=== PATIENT | female | born 1970 | race Caucasian/White ===

== ENCOUNTER 2016-11-26 16:24 | Inpatient (IN) | payer MEDICAID ==
[2016-11-26] MEDS ORDERED: Iohexol 240 (50 ml) PO STA (16:38)
[2016-11-26] MEDS ORDERED: Sodium Chloride 0.9% 1,000 ML IV ONE (16:38)
--- NOTE | 2016-11-26 16:44 | C.PDOC ---
History Of Present Illness 46-year-old female, PMHx includes Hypothyroidism, presents to the emergency department with complaints of abdominal pain. Patient states she has been experiencing right lower quadrant abdominal pain x3 weeks. States she developed nausea, that is associated with non-bloody/non-bilious vomiting and non-bloody/ watery diarrhea that started last night. Pain is constant, worse with movement and associated with dizziness and light headedness. Patients LNMP 11/16. She denies symptoms, back pain, fevers or chills. No other complaints at this time. Time Seen by Provider: 11/26/16 16:34 Chief Complaint (Nursing): Abdominal Pain History Per: Patient History/Exam Limitations: no limitations Past Medical History Reviewed: Historical Data, Nursing Documentation, Vital Signs Vital Signs: Last Vital Signs Temp 98.0 F 11/26/16 16:28 Pulse 62 11/26/16 18:44 Resp 20 11/26/16 18:44 BP 101/60 11/26/16 18:44 Pulse Ox 98 11/26/16 21:10 - Medical History PMH: Gastritis, Hypothyroidism Surgical History: Cholecystectomy Family History: States: Unknown Family Hx - Social History Hx Tobacco Use: No Hx Alcohol Use: No Hx Substance Use: No - Immunization History Hx Tetanus Toxoid Vaccination: Yes Hx Influenza Vaccination: Yes Hx Pneumococcal Vaccination: Yes Review Of Systems Except As Marked, All Systems Reviewed And Found Negative. Constitutional: Negative for: Fever, Chills Cardiovascular: Negative for: Chest Pain, Palpitations Respiratory: Negative for: Shortness of Breath Gastrointestinal: Positive for: Nausea, Vomiting, Abdominal Pain, Diarrhea Genitourinary: Negative for: Dysuria, Frequency, Vaginal Discharge, Vaginal Bleeding Musculoskeletal: Negative for: Back Pain Physical Exam - Physical Exam Appears: Non-toxic, No Acute Distress Skin: Warm, Dry, No Rash Head: Atraumatic, Normacephalic Eye(s): bilateral: Normal Inspection, PERRL, EOMI Nose: Normal Oral Mucosa: Moist Lips: Normal Appearing Neck: Normal ROM Cardiovascular: Rhythm Regular Respiratory: Normal Breath Sounds, No Accessory Muscle Use Gastrointestinal/Abdominal: Bowel Sounds, Soft, Tenderness (epigastric, RUQ, RLQ ), No Guarding, No Rebound Back: No CVA Tenderness Extremity: Normal ROM Neurological/Psych: Oriented x3, Normal Speech ED Course And Treatment - Laboratory Results Result Diagrams: 11/26/16 16:50 11/26/16 16:50 Lab Interpretation: No Acute Changes O2 Sat by Pulse Oximetry: 98 Pulse Ox Interpretation: Normal - CT Scan/US CT ABDOMEN/PELVIS W Other Rad Studies (CT/US): Read By Radiologist, Radiology Report Reviewed CT/US Interpretation: IMPRESSION: 1. Complex cystic mass within the left kidney suspicious for a renal cell carcinoma.. Reevaluation Time: 21:09 Reassessment Condition: Unchanged - Physician Consult Information Time Consulting Physician Contacted: 21:09 Physician Contacted: Malvin Tyler Outcome Of Conversation: Patient to be admitted to the hospitalist for abdominal pain and new diagnosis of possible renal cell carcinoma. Disposition - Disposition Disposition: HOSPITALIZED Disposition Time: 21:27 Condition: STABLE - POA Present On Arrival: None - Clinical Impression Clinical Impression: Abdominal pain, Mass of left kidney - Scribe Statement The provider has reviewed the documentation as recorded by the Saraibrd Beck All medical record entries made by the Saraibrd were at my direction and personally dictated by me. I have reviewed the chart and agree that the record accurately reflects my personal performance of the history, physical exam, medical decision making, and the department course for this patient. I have also personally directed, reviewed, and agree with the discharge instructions and disposition.
[2016-11-26] MEDS ORDERED: Sodium Chloride 0.9% 1,000 ML ONE (16:51)
[2016-11-26] MEDS ORDERED: Iohexol 240 (50 ml) ONE (16:51)
[2016-11-26 17:00] LABS: BASO % 0.6 % (0.0-2.0); EOS # 0.4 K/uL (0.0-0.7); EOS % 5.8 % (0.0-4.0); HEMATOCRIT 38.9 % (34.0-47.0); LYMPH # 1.5 K/uL (1.0-4.3); LYMPH % 21.3 % (20.0-40.0); MEAN CELL VOLUME 84.3 fL (81.0-99.0); MEAN CORPUSCULAR HEMOGLOBIN 27.2 pg (27.0-31.0); MEAN CORPUSCULAR HGB CONC 32.2 g/dL (33.0-37.0); MEAN PLATELET VOLUME 9.3 fL (7.2-11.7); MONO # 0.4 K/uL (0.0-0.8); NRBC % 0.1 % (0.0-2.0); RED CELL DISTRIBUTION WIDTH 14.5 % (11.5-14.5); WHITE BLOOD COUNT 7.2 K/uL (4.8-10.8)
[2016-11-26 17:08] LABS: CHLORIDE 101 mmol/L (98-107); POTASSIUM 3.9 mmol/L (3.6-5.2); SODIUM 138 mmol/L (132-148)
[2016-11-26 17:10] LABS: GFR AFRICAN-AMERICAN > 60; RBC URINE 1 /hpf (0-3); URINE BILIRUBIN NEGATIVE (NEGATIVE); URINE BLOOD NEGATIVE (NEGATIVE); URINE COLOR Yellow (YELLOW); URINE GLUCOSE (UA) NORMAL (Normal); URINE KETONE NEGATIVE (NEGATIVE); URINE LEUKOCYTE ESTERASE NEG Leu/uL (Negative); URINE PROTEIN NEGATIVE (NEGATIVE); URINE UROBILINOGEN NORMAL mg/dL (0.2-1.0); WBC URINE 1 /hpf (0-5)
[2016-11-26 17:11] LABS: ALB/GLOB RATIO 1.4 (1.0-2.1); ALKALINE PHOSPHATASE 86 U/L (38-126); ALT/SGPT 24 U/L (9-52); AST/SGOT 27 U/L (14-36); BILIRUBIN,TOTAL 0.7 mg/dL (0.2-1.3); BLOOD UREA NITROGEN 14 mg/dL (7-17); CALCIUM 8.6 mg/dl (8.6-10.4); CARBON DIOXIDE 28 mmol/L (22-30); GLUCOSE,RANDOM 103 mg/dL (65-105); TOTAL PROTEIN 7.3 g/dL (6.3-8.3)
[2016-11-26] MEDS ORDERED: Iodixanol 320 MG/ML 100 ML BOTTLE IV ONE (19:32)
--- NOTE | 2016-11-26 20:19 | CT ---
EXAM: CT Abdomen and Pelvis With Intravenous Contrast CLINICAL HISTORY: 46 years old, female; Pain; Abdominal pain; Generalized; Additional info: Abd pain TECHNIQUE: Axial computed tomography images of the abdomen and pelvis with intravenous contrast. This CT exam was performed using one or more of the following dose reduction techniques: automated exposure control, adjustment of the mA and/or kV according to patient size, and/or use of iterative reconstruction technique. Coronal and sagittal reformatted images were created and reviewed. CONTRAST: 100 mL of VISIPAQUE administered intravenously. EXAM DATE/TIME: Exam ordered 11/26/2016 4:40 PM COMPARISON: No relevant prior studies available. FINDINGS: Lower thorax: Hypoventilatory changes are noted at the left lung base. ABDOMEN: Liver: Unremarkable. No mass. Gallbladder and bile ducts: Surgical clips are noted in the gallbladder fossa. The gallbladder is absent. No ductal dilation. Pancreas: Unremarkable. No mass. No ductal dilation. Spleen: Unremarkable. No splenomegaly. Adrenals: Unremarkable. No mass. Kidneys and ureters: There is a complex cystic mass arising from the midportion of the left kidney. There is a suggestion of mural nodularity. The mass measures 2.7 x 3.3 x 2.7 cm. Thin internal septations are suggested.The left renal vein opacifies normally. There is no perirenal inflammatory change. No hydronephrosis. Stomach and bowel: Surgical clips are noted at the base of the cecum. No obstruction. No mucosal thickening. Appendix: The appendix is not seen. PELVIS: Bladder: Unremarkable. No mass. Reproductive: Unremarkable as visualized. ABDOMEN and PELVIS: Intraperitoneal space: Unremarkable. No free air. No significant fluid collection. Retroperitoneal space: No significant fluid collection. Bones/joints: No acute fracture. No dislocation. Soft tissues: Unremarkable. Vasculature: See above. Lymph nodes: Unremarkable. No enlarged lymph nodes. IMPRESSION: 1. Complex cystic mass within the left kidney suspicious for a renal cell carcinoma..
--- NOTE | 2016-11-26 21:34 | CP.PCM.HP ---
<Van Mckoy - Last Filed: 11/26/16 23:40> History of Present Illness - History of Present Illness History of Present Illness: CC: abdominal pain, nausea/vomiting" 46F with PMH of hypothyroidism presented to [facility] ED with complaint of abdominal pain and nausea/vomiting. Patient states that symptoms have been going on for about 3 weeks. She states that she has never experienced these symptoms before. She also reports a gradual onset. She stated that she has vomited about 4-5 times in last two days. She describes the vomit as dark black each time. She states that she has also had 7 episodes of diarrhea. She decided to come in today because pain was worse and n/v/d had not resolved. Patient rates abd pain as 10/10 in severity. She describes the pain as constant and sharp that begins in epigastric region which radiates to RLQ and R flank. Eating /drinking exacerbates her symptoms while nothing she notices alleviates them. Admits to fatigue and body aches. Denies recent illness, sick contacts, fver/ chills, cp, sob, constipation, incontinence, numbness/tingling. PMD: Dr. Tyler PMH: Hypothyroidism Med: Synthroid 25 mcg PO daily Allergy: NKDA PSH: bladder procedure for stones Hosp: colitis 8-10 years ago Fh: Unknown Social: lives with family, denies tobacco/ETOH/illicit drug use Present on Admission - Present on Admission Any Indicators Present on Admission: No History of DVT/PE: No History of Uncontrolled Diabetes: No Urinary Catheter: No Decubitus Ulcer Present: No Past Patient History - Past Social History Smoking Status: Never Smoked - ENDOCRINE/METABOLIC Hx Hypothyroidism: Yes - GASTROINTESTINAL Hx Gastritis: Yes - PSYCHIATRIC Hx Substance Use: No - SURGICAL HISTORY Hx Cholecystectomy: Yes - ANESTHESIA Hx Anesthesia: Yes Hx Anesthesia Reactions: No Meds Allergies/Adverse Reactions: Allergies Allergy/AdvReac Type Severity Reaction Status Date / Time No Known Allergies Allergy Verified 11/26/16 16:27 Physical Exam - Constitutional Appears: In Acute Distress (mild) - Head Exam Head Exam: ATRAUMATIC, NORMOCEPHALIC - Eye Exam Eye Exam: EOMI, Normal appearance Pupil Exam: PERRL - ENT Exam ENT Exam: Mucous Membranes Dry - Neck Exam Neck exam: Positive for: Normal Inspection - Respiratory Exam Respiratory Exam: Clear to Auscultation Bilateral, NORMAL BREATHING PATTERN - Cardiovascular Exam Cardiovascular Exam: RRR, +S1, +S2 - GI/Abdominal Exam GI & Abdominal Exam: Guarding (with deep palpation), Normal Bowel Sounds, Soft, Tenderness (RLQ, Epigastric pain). absent: Distended, Firm, Rebound - Extremities Exam Extremities exam: Positive for: normal capillary refill, pedal pulses present. Negative for: calf tenderness - Back Exam Back exam: tenderness (R flank pain) - Neurological Exam Neurological exam: Alert, CN II-XII Intact, Oriented x3 - Psychiatric Exam Psychiatric exam: Normal Affect, Normal Mood - Skin Skin Exam: Dry, Intact, Normal Color, Warm Results - Vital Signs Recent Vital Signs: Last Vital Signs Temp 98.0 F 11/26/16 16:28 Pulse 62 11/26/16 18:44 Resp 20 11/26/16 18:44 BP 101/60 11/26/16 18:44 Pulse Ox 98 11/26/16 21:28 - Labs Result Diagrams: 11/26/16 16:50 11/26/16 16:50 Labs: Laboratory Results - last 24 hr 11/26/16 11/26/16 11/26/16 16:50 16:50 16:50 WBC 7.2 RBC 4.62 Hgb 12.5 Hct 38.9 MCV 84.3 MCH 27.2 MCHC 32.2 L RDW 14.5 Plt Count 281 MPV 9.3 Neut % (Auto) 66.3 Lymph % (Auto) 21.3 [place]offey % (Auto) 6.0 Eos % (Auto) 5.8 H Baso % (Auto) 0.6 Neut # 4.8 Lymph # 1.5 Coffey # 0.4 Eos # 0.4 Baso # 0.0 Sodium 138 Potassium 3.9 Chloride 101 Carbon Dioxide 28 Anion Gap 14 BUN 14 Creatinine 0.8 Est GFR ( Amer) > 60 Est GFR (Non-Af Amer) > 60 Random Glucose 103 Calcium 8.6 Total Bilirubin 0.7 AST 27 ALT 24 Alkaline Phosphatase 86 Total Protein 7.3 Albumin 4.2 Globulin 3.1 Albumin/Globulin Ratio 1.4 Lipase 39 Urine Color Yellow Urine Clarity Hazy Urine pH 5.0 Ur Specific [place] 1.026 Urine Protein Negative Urine Glucose (UA) Normal Urine Ketones Negative Urine Blood Negative Urine Nitrate Negative Urine Bilirubin Negative Urine Urobilinogen Normal Ur Leukocyte Esterase Neg Urine WBC (Auto) 1 Urine RBC (Auto) 1 Ur Squamous Epith Cells 19 H Urine HCG, Qual 11/26/16 16:50 WBC RBC Hgb Hct MCV MCH MCHC RDW Plt Count MPV Neut % (Auto) Lymph % (Auto) [place]offey % (Auto) Eos % (Auto) Baso % (Auto) Neut # Lymph # [place] # Eos # Baso # Sodium Potassium Chloride Carbon Dioxide Anion Gap BUN Creatinine Est GFR ( Amer) Est GFR (Non-Af Amer) Random Glucose Calcium Total Bilirubin AST ALT Alkaline Phosphatase Total Protein Albumin Globulin Albumin/Globulin Ratio Lipase Urine Color Urine Clarity Urine pH Ur Specific [place] Urine Protein Urine Glucose (UA) Urine Ketones Urine Blood Urine Nitrate Urine Bilirubin Urine Urobilinogen Ur Leukocyte Esterase Urine WBC (Auto) Urine RBC (Auto) Ur Squamous Epith Cells Urine HCG, Qual Negative Assessment & Plan - Assessment and Plan (Free Text) Plan: 1. Abdominal pain Med/surg CT abd/pelvis: Complex cystic mass within the left kidney suspicious for a renal cell carcinoma (see full report) Zofran 4 mg IVP Q6H PRN Morphine 2 mg IVP Q4H PRN Protonix 40 mg IVP Q12H Sulcrafate 1 gm PO BID NS 100 cc/hr NPO 2. Nausea/vomiting coffee ground emesis as per patient Zofran 4 mg IVP Q6H PRN Protonix 40 mg IVP Q12H Sulcrafate 1 gm PO BID NS 100 cc/hr NPO 3. Renal Mass CT abd/pelvis: Complex cystic mass within the left kidney suspicious for a renal cell carcinoma (see full report) Heme/Onc consult, Dr. Palm, help appreciated Urology consult, Dr. Marquez, help appreciated UA: only shows sqaumos epith cells 19 4. Hypothyroidism Synthroid 25 mcg PO daily f/u TSH/T4 5. Prophylactic Measures Anticoagulation contraindicated due to coffee ground emesis SCDs protonix 40 mg IVP Q12H stool occult blood <Blas Lai - Last Filed: 11/27/16 06:34> Results - Vital Signs Recent Vital Signs: Last Vital Signs Temp 98.3 F 11/26/16 23:50 Pulse 60 11/27/16 01:50 Resp 20 11/26/16 23:50 BP 104/67 11/26/16 23:50 Pulse Ox 96 11/27/16 01:50 - Labs Result Diagrams: 11/26/16 16:50 11/26/16 16:50 Assessment & Plan - Date & Time Date: 11/27/16 (I have seen and examined the patient. I agree with the findings and plan of care as documented by Dr. Mckoy. Patient with abdominal pain, nausea, and vomiting. CT abdomen shows renal mass suspcious for renal cell carcinoma. Symptomatic treatment. Consult to urology and Heme/ onc. Monitor for acute changes.) Time: 06:33 Attending/Attestation - Attestation I have personally seen and examined this patient.: Yes I have fully participated in the care of the patient.: Yes I have reviewed all pertinent clinical information: Yes
[2016-11-27 00:10] VITALS: RESP 20
[2016-11-27] MEDS: Sodium Chloride 0.9% 1,000 ML IV SCH ×3 (00:15→21:47)
[2016-11-27] MEDS: Levothyroxine 25 MCG TAB PO SCH (07:00)
[2016-11-27 07:53] LABS: BASO % 0.4 % (0.0-2.0); EOS # 0.2 K/uL (0.0-0.7); EOS % 4.5 % (0.0-4.0); HEMATOCRIT 34.7 % (34.0-47.0); LYMPH # 1.8 K/uL (1.0-4.3); LYMPH % 34.9 % (20.0-40.0); MEAN CELL VOLUME 84.2 fL (81.0-99.0); MEAN CORPUSCULAR HEMOGLOBIN 27.2 pg (27.0-31.0); MEAN CORPUSCULAR HGB CONC 32.3 g/dL (33.0-37.0); MEAN PLATELET VOLUME 8.7 fL (7.2-11.7); MONO # 0.4 K/uL (0.0-0.8); MONO % 7.9 % (0.0-10.0); RED CELL DISTRIBUTION WIDTH 14.4 % (11.5-14.5); WHITE BLOOD COUNT 5.2 K/uL (4.8-10.8)
[2016-11-27 08:03] LABS: CHLORIDE 103 mmol/L (98-107)
[2016-11-27 08:04] LABS: POTASSIUM 3.7 mmol/L (3.6-5.2); SODIUM 137 mmol/L (132-148)
[2016-11-27 08:06] LABS: ALB/GLOB RATIO 1.2 (1.0-2.1); ALKALINE PHOSPHATASE 74 U/L (38-126); ALT/SGPT 17 U/L (9-52); AST/SGOT 22 U/L (14-36); BILIRUBIN,TOTAL 0.5 mg/dL (0.2-1.3); BLOOD UREA NITROGEN 9 mg/dL (7-17); CARBON DIOXIDE 24 mmol/L (22-30); GFR AFRICAN-AMERICAN > 60; TOTAL PROTEIN 5.8 g/dL (6.3-8.3)
[2016-11-27 08:07] LABS: CALCIUM 7.6 mg/dl (8.6-10.4); GLUCOSE,RANDOM 86 mg/dL (65-105)
--- NOTE | 2016-11-27 15:23 | CP.PCM.PN ---
<Mihaela Hinojosa - Last Filed: 11/27/16 16:07> Subjective - Date & Time of Evaluation Date of Evaluation: 11/27/16 Time of Evaluation: 08:00 - Subjective Subjective: Medicine Progress Note- Dr. Fritz's Service: Patient seen and examined at bedside this AM. Patient is complaining of 9/10 abdominal pain. She admits to nausea, but no vomiting since yesterday. She has a history of hypothyroid and taker her medication daily. She denies chest pain, SOB, fevers, chills. Admits to headache since last night secondary to emesis. Patient informed of renal mass found on imaging and need for further workup whether inpatient or outpatient is to be determined. Patient is NPO for now. Objective - Vital Signs/Intake and Output Vital Signs (last 24 hours): Temp Pulse Resp BP Pulse Ox 98.1 F 60 20 101/64 99 11/27/16 09:10 11/27/16 09:10 11/27/16 09:10 11/27/16 09:10 11/27/16 09:10 Intake and Output: 11/27/16 11/27/16 06:59 18:59 Intake Total 700 Balance 700 - Medications Medications: Current Medications Sodium Chloride (Sodium Chloride 0.9%) 1,000 mls @ 100 mls/hr IV .Q10H [facility] Last Admin: 11/27/16 10:00 Dose: 100 mls/hr Levothyroxine Sodium (Synthroid) 25 mcg PO DAILY@0630 [facility] Last Admin: 11/27/16 07:00 Dose: 25 mcg Morphine Sulfate (Morphine) 2 mg IVP Q4H PRN PRN Reason: Pain, Mild (1-3) Last Admin: 11/27/16 07:00 Dose: 2 mg Ondansetron HCl (Zofran Inj) 4 mg IVP Q6 PRN PRN Reason: Nausea/Vomiting Pantoprazole Sodium (Protonix Inj) 40 mg IVP Q12H [facility] Last Admin: 11/27/16 10:33 Dose: 40 mg Sucralfate (Carafate Tab) 1 gm PO BID [facility] Last Admin: 11/27/16 10:33 Dose: 1 gm - Labs Labs: 11/27/16 07:44 11/27/16 07:44 PT 11.3 SECONDS (9.7-12.2) 11/27/16 07:44 INR 1.0 11/27/16 07:44 APTT 31 SECONDS (21-34) 11/27/16 07:44 - Constitutional Appears: No Acute Distress - Head Exam Head Exam: NORMAL INSPECTION, NORMOCEPHALIC - Eye Exam Eye Exam: EOMI, Normal appearance - ENT Exam ENT Exam: Mucous Membranes Moist - Neck Exam Neck Exam: Full ROM - Respiratory Exam Respiratory Exam: Accessory Muscle Use, NORMAL BREATHING PATTERN - Cardiovascular Exam Cardiovascular Exam: REGULAR RHYTHM, +S1, +S2 - GI/Abdominal Exam GI & Abdominal Exam: Soft, Tenderness, Normal Bowel Sounds. absent: Distended - Extremities Exam Extremities Exam: Full ROM, Normal Inspection. absent: Pedal Edema, Tenderness - Back Exam Back Exam: NORMAL INSPECTION - Neurological Exam Neurological Exam: Alert, Awake, Oriented x3 - Psychiatric Exam Psychiatric exam: Normal Affect, Normal Mood - Skin Skin Exam: Dry, Normal Color, Warm Assessment and Plan (1) Coffee ground emesis Assessment & Plan: Coffee ground emesis as per patient GI consult place-Dr. Varner- help appreciated. Zofran 4 mg IVP Q6H PRN Protonix 40 mg IVP Q12H Sulcrafate 1 gm PO BID NS 100 cc/hr Keep NPO. Diet as per GI. Abd US ordered today- f/u results. Status: Acute (2) Abdominal pain Assessment & Plan: CT abd/pelvis: Complex cystic mass within the left kidney suspicious for a renal cell carcinoma (see full report). Abd US ordered today- f/u results. Lipase 39 and WNL. No leukocytosis. Keep NPO for now. Diet at per GI. Zofran 4 mg IVP Q6H PRN Morphine 2 mg IVP Q4H PRN Protonix 40 mg IVP Q12H Sulcrafate 1 gm PO BID NS 100 cc/hr Status: Acute (3) Mass of left kidney Assessment & Plan: CT abd/pelvis: Complex cystic mass within the left kidney suspicious for a renal cell carcinoma (see full report) Heme/Onc consult, Dr. Palm, help appreciated Urology consult, Dr. Marquez, help appreciated UA: only shows sqaumos epith cells 19 Status: Acute (4) Hypothyroidism Assessment & Plan: Synthroid 25 mcg PO daily f/u TSH/T4 ordered for the AM Status: Acute (5) Prophylactic measure Assessment & Plan: Anticoagulation contraindicated due to coffee ground emesis SCDs protonix 40 mg IVP Q12H stool occult blood Status: Acute <Sobeida Fritz V - Last Filed: 11/27/16 17:53> Objective - Vital Signs/Intake and Output Vital Signs (last 24 hours): Temp Pulse Resp BP Pulse Ox 98.1 F 60 20 101/64 99 11/27/16 09:10 11/27/16 09:10 11/27/16 09:10 11/27/16 09:10 11/27/16 09:10 Intake and Output: 11/27/16 11/27/16 06:59 18:59 Intake Total 1500 Balance 1500 - Medications Medications: Current Medications Sodium Chloride (Sodium Chloride 0.9%) 1,000 mls @ 100 mls/hr IV .Q10H [facility] Last Admin: 11/27/16 10:00 Dose: 100 mls/hr Levothyroxine Sodium (Synthroid) 25 mcg PO DAILY@0630 [facility] Last Admin: 11/27/16 07:00 Dose: 25 mcg Morphine Sulfate (Morphine) 2 mg IVP Q4H PRN PRN Reason: Pain, Mild (1-3) Last Admin: 11/27/16 07:00 Dose: 2 mg Ondansetron HCl (Zofran Inj) 4 mg IVP Q6 PRN PRN Reason: Nausea/Vomiting Pantoprazole Sodium (Protonix Inj) 40 mg IVP Q12H [facility] Last Admin: 11/27/16 10:33 Dose: 40 mg Sucralfate (Carafate Tab) 1 gm PO BID [facility] Last Admin: 11/27/16 17:29 Dose: 1 gm - Labs Labs: 11/27/16 07:44 11/27/16 07:44 PT 11.3 SECONDS (9.7-12.2) 11/27/16 07:44 INR 1.0 11/27/16 07:44 APTT 31 SECONDS (21-34) 11/27/16 07:44 Attending/Attestation - Attestation I have personally seen and examined this patient.: Yes I have fully participated in the care of the patient.: Yes I have reviewed all pertinent clinical information, including history, physical exam and plan: Yes Notes (Text): Patient seen, examined and case discussed with day-time resident. Patient reporting epigastric, right upper quadrant pain, burning in qualtiy, with associated nausea. Patient had indicated to day-time resident she had " dark vomitus" None reported today. Patient has noted CT Abdomen/Pelvis a complex cystic mass arising from midportion of the left kidney (mural nodularity. Mass: 2.7 X3.3X2.7 cm. thin internal septations are suggested left vein opacifies normally. Lipase normal on admission. Patient ordered for Abdominal US, Stool studies. GI consult for questionable coffee ground emesis; H/H is within normal, on PPi, and no acute finding noted on CT with PO and IV contrast F/u with urology and heme-onc regarding left renal mass Assessment/Plan (1) Abdominal pain Assessment & Plan: * CT abd/pelvis w PO and IV contrast (11/26/16): complex cystic mass arising from midportion of the left kidney (mural nodularity. Mass: 2.7 X3.3X2.7 cm. thin internal septations are suggested left vein opacifies normally * Ordered for Ab US today (patient points to RUQ/Epigastric area on exam) * Lipase is normal, LFTs normal, INR normal * Zofran 4 mg IVP Q6H PRN nausea * Morphine 2 mg IVP Q4H PRN * Protonix 40 mg IVP Q12H * Sulcrafate 1 gm PO BID * NS 100 cc/hr * Reported diarrhea: ordered for stool ova and parasite, and cdif * Ordered for stool occult blood Status: Acute (2) Mass of left kidney Assessment & Plan: * CT abd/pelvis w PO and IV contrast (11/26/16): complex cystic mass arising from midportion of the left kidney (mural nodularity. Mass: 2.7 X3.3X2.7 cm. thin internal septations are suggested left vein opacifies normally * f/u Heme/Onc consult, Dr. Palm, help appreciated * f/u Urology consult, Dr. Marquez, help appreciated * UA: only shows sqaumos epith cells 19 (contaminated); f/u urine culture Status: Acute (3) Coffee ground emesis Assessment & Plan: * "Coffee ground emesis" as per patient * GI consult on call0-Dr. Varner- help appreciated. * Zofran 4 mg IVP Q6H PRN nausea * Protonix 40 mg IVP Q12H * Sulcrafate 1 gm PO BID * NS 100 cc/hr. * H/H is stable Status: Acute (4) Hypothyroidism Assessment & Plan: * Synthroid 25 mcg PO daily * f/u TSH/T4 ordered for the AM Status: Acute (5) Prophylactic measure Assessment & Plan: * Anticoagulation contraindicated due to coffee ground emesis * SCDs b/l * Protonix 40 mg IVP Q12H * stool occult blood * NPO Status: Acute
--- NOTE | 2016-11-27 17:45 | US ---
HISTORY: abd pain COMPARISON: CT abdomen and pelvis with contrast performed 11/26/16 TECHNIQUE: Sonographic evaluation of the abdomen. FINDINGS: LIVER: Measures 12.0 cm in sagittal dimension. Echogenic liver may be seen in setting of hepatic parenchymal disease or fatty infiltration. No focal hepatic mass identified. The main portal vein appears patent with normal directional flow. No intrahepatic bile duct dilatation. GALLBLADDER: Cholecystectomy. COMMON BILE DUCT: Measures 6 mm. PANCREAS: Not well visualized. RIGHT KIDNEY: Measures 9.6 x 4.6 x 4.7 cm. No obstructing calculus or hydronephrosis identified. LEFT KIDNEY: Measures 9.5 x 4.4 x 4.5 cm. 2.6 x 2.4 x 2.8 cm heterogeneous hypoechoic lesion likely complex cyst with septation. No obstructing calculus or hydronephrosis identified. SPLEEN: Images are not provided of the spleen, as per technologist obscured. AORTA: Limited views appear unremarkable. IVC: Limited views appear unremarkable. OTHER FINDINGS: None. IMPRESSION: Echogenic liver may be seen in setting of hepatic parenchymal disease or fatty infiltration. Heterogeneous hypoechoic left renal lesion favored to represent complex cyst with septation. Cholecystectomy. Limitations of the study as above.
--- NOTE | 2016-11-27 19:58 | CON ---
DATE: 11/27/2016 TIME OF CONSULTATION: Roughly 4:40 p.m. BRIEF HISTORY: The patient is a 46-year-old sexually active female from [place], para 3 with 2 abortions who presents to [facility] Emergency Room with acute onset of abdominal pain, mostly on her right side and right mid epigastric area. She also complains of right shoulder pain. Abdominal pelvic CT with IV contrast showed a complex left renal cyst without any hydronephrosis or renal stones. The complex cystic mass measures 2.7 x 3.3 x 2.7 cm. There are no adrenal or bladder masses. This cystic mass is located in the left mid portion of the kidney. The patient gives a prior history of kidney stones that she was told she had kidney stones about 2 years ago at [facility] where an abdominal pelvic CT was done at that time. However, she denies any history of passing any kidney stones. She currently denies any dysuria or gross hematuria or renal colic. This case was discussed with Dr. Almaraz, radiology, and the original reading from the overnight radiologist was suspicious for renal cell carcinoma; however, Dr. Almaraz has reviewed this film with myself and this seems to be just a complex renal cyst at this time. Even though the study was not done without contrast, it does not look like there is any significant enhancement of this mass compared to the kidney enhancement. A renal ultrasound is currently being done for this patient. The patient's abdominal pain has improved since her admission. SOCIAL HISTORY: She denies any history of alcohol or tobacco use. ALLERGIES: She has no known allergies to any medication. VITAL SIGNS: Today, his temperature is 98.1, pulse rate is 60, blood pressure is 101/64 and her respiration rate is 20 and her O2 sat on room air is 99%. LABORATORY EVALUATION: Today 11/27/2016 shows a CBC with a WBC count of 5.2, hemoglobin 11.2, hematocrit of 34.7 with a platelet count of 238,000. Her coag profile shows a PT of 11.3, INR of 1.0 and a PTT of 31. Chem profile shows a sodium of 137, potassium 3.7, chloride 103, BUN and creatinine of 9 and 0.7 respectively with a GFR of greater than 60. Random glucose was 86. Calcium 7.6. AST was 22, ALT 17. Alkaline phosphatase 74. Original lipase on 2016 was 39. Urinalysis on 11/26/2016 was completely within normal limits except for some squamous cells, epithelial cells 19. Urine hCG was negative. DIAGNOSTIC IMPRESSION: For this patient is: 1. Abdominal pain, which is not being caused by the complex renal cystic mass. At this time, most of her discomfort and pain is on the right side. 2. Left complex renal cystic mass. PLAN: 1. For this patient is to check the renal ultrasound. 2. The patient most likely can be followed by renal ultrasounds. 3. Try to get the CT report from [facility] done 2 years ago. Her next renal ultrasound should be in 6 months, and if there is no change, then yearly followup. If necessary, a CT tumor protocol can be done without and with IV contrast. Kimani Marquez MD cc: [id number] TT: 11/27/2016 19:58:04 Confirmation # [id number] Dictation # [id number] [id number]
[2016-11-27 23:32] VITALS: O2SAT 98
[2016-11-28] MEDS: Levothyroxine 25 MCG TAB PO SCH (05:52)
[2016-11-28] MEDS: Sodium Chloride 0.9% 1,000 ML IV SCH ×2 (05:52→17:51)
[2016-11-28 07:42] LABS: BASO % 0.7 % (0.0-2.0); EOS # 0.1 K/uL (0.0-0.7); HEMATOCRIT 36.3 % (34.0-47.0); LYMPH # 1.4 K/uL (1.0-4.3); LYMPH % 30.5 % (20.0-40.0); MEAN CELL VOLUME 84.4 fL (81.0-99.0); MEAN CORPUSCULAR HEMOGLOBIN 27.2 pg (27.0-31.0); MEAN CORPUSCULAR HGB CONC 32.2 g/dL (33.0-37.0); MONO # 0.3 K/uL (0.0-0.8); MONO % 6.5 % (0.0-10.0); NRBC % 0.1 % (0.0-2.0); RED CELL DISTRIBUTION WIDTH 14.2 % (11.5-14.5); WHITE BLOOD COUNT 4.7 K/uL (4.8-10.8)
[2016-11-28 08:00] LABS: CHLORIDE 106 mmol/L (98-107)
[2016-11-28 08:01] LABS: POTASSIUM 3.9 mmol/L (3.6-5.2); SODIUM 136 mmol/L (132-148)
[2016-11-28 08:03] LABS: ALB/GLOB RATIO 1.1 (1.0-2.1); ALKALINE PHOSPHATASE 73 U/L (38-126); ALT/SGPT 11 U/L (9-52); AST/SGOT 24 U/L (14-36); BILIRUBIN,TOTAL 0.5 mg/dL (0.2-1.3); BLOOD UREA NITROGEN 14 mg/dL (7-17); CARBON DIOXIDE 19 mmol/L (22-30); GFR AFRICAN-AMERICAN > 60; GLUCOSE,RANDOM 68 mg/dL (65-105); TOTAL PROTEIN 5.8 g/dL (6.3-8.3)
[2016-11-28 08:04] LABS: CALCIUM 7.7 mg/dl (8.6-10.4); MAGNESIUM 1.9 mg/dL (1.6-2.3)
[2016-11-28 08:33] LABS: THYROID STIMULATING HORMONE 0.93 mIU/L (0.46-4.68)
--- NOTE | 2016-11-28 13:11 | CP.PCM.CON ---
<Chary Hernandez - Last Filed: 11/28/16 13:01> History of Present Illness - History of Present Illness History of Present Illness: Gastroenterology Fellow/PGY4 Consult Note 46 year old female with history of Hypothyroidism and endorsed colitis eight years ago presenting with abdominal pain vomiting, and diarrhea. Patient describes onset of epigastric and mid-abdominal pain, pain scale 6/10 for the last two days. Associated six episodes each of diarrhea and bilious brown vomitus. She notes the abdominal pain is chronic and intermittent for last ten years with first occurrence of vomiting and diarrhea. Denies hematemesis, coffee ground emesis, melena, hematochezia, fever, chills, sweats, or unintentional weight loss. Denies sick contacts, recent antibiotics, or travel. Denies NSAIDs or alcohol use. Prior EGD endorsed to have Gastritis and colonoscopy endorsed to be normal. [id number] cancer; denies colon cancer, stomach cancer Social- denies tobacco, alcohol, illicit drug use Surgery-cholecystectomy Review of Systems - Review of Systems Review of Systems: A 12-point review of systems negative except for as above Past Patient History - Past Medical History & Family History Past Medical History?: Yes - Past Social History Smoking Status: Never Smoked - CARDIAC Hx Cardiac Disorders: No - PULMONARY Hx Respiratory Disorders: No - NEUROLOGICAL Hx Neurological Disorder: No - HEENT Hx HEENT Problems: No - RENAL Hx Chronic Kidney Disease: No - ENDOCRINE/METABOLIC Hx Endocrine Disorders: Yes Hx Hypothyroidism: Yes - HEMATOLOGICAL/ONCOLOGICAL Hx Blood Disorders: No - INTEGUMENTARY Hx Dermatological Problems: No - MUSCULOSKELETAL/RHEUMATOLOGICAL Hx Musculoskeletal Disorders: No Hx Falls: No - GASTROINTESTINAL Hx Gastrointestinal Disorders: Yes Hx Gastritis: Yes - GENITOURINARY/GYNECOLOGICAL Hx Genitourinary Disorders: No - PSYCHIATRIC Hx Psychophysiologic Disorder: No Hx Substance Use: No - SURGICAL HISTORY Hx Surgeries: Yes Hx Cholecystectomy: Yes - ANESTHESIA Hx Anesthesia: Yes Hx Anesthesia Reactions: No Meds Allergies/Adverse Reactions: Allergies Allergy/AdvReac Type Severity Reaction Status Date / Time No Known Allergies Allergy Verified 11/26/16 16:27 - Medications Medications: Current Medications Sodium Chloride (Sodium Chloride 0.9%) 1,000 mls @ 100 mls/hr IV .Q10H JEFFREY Last Admin: 11/28/16 05:52 Dose: 100 mls/hr Levothyroxine Sodium (Synthroid) 25 mcg PO DAILY@0630 [facility] Last Admin: 11/28/16 05:52 Dose: 25 mcg Morphine Sulfate (Morphine) 2 mg IVP Q4H PRN PRN Reason: Pain, Mild (1-3) Last Admin: 11/28/16 12:41 Dose: 2 mg Ondansetron HCl (Zofran Inj) 4 mg IVP Q6 PRN PRN Reason: Nausea/Vomiting Pantoprazole Sodium (Protonix Inj) 40 mg IVP Q12H [facility] Last Admin: 11/28/16 10:39 Dose: 40 mg Sucralfate (Carafate Tab) 1 gm PO BID [facility] Last Admin: 11/28/16 09:05 Dose: 1 gm Physical Exam - Constitutional Appears: Non-toxic, No Acute Distress - Head Exam Head Exam: ATRAUMATIC, NORMOCEPHALIC - Eye Exam Eye Exam: EOMI, PERRL Pupil Exam: PERRL. absent: Miosis, Mydriatic - ENT Exam ENT Exam: Mucous Membranes Moist, Normal Oropharynx - Neck Exam Neck exam: Positive for: Full Rom, Normal Inspection - Respiratory Exam Respiratory Exam: Clear to Auscultation Bilateral. absent: Rales, Rhonchi, Wheezes - Cardiovascular Exam Cardiovascular Exam: RRR, +S1, +S2. absent: Gallop, Rubs - GI/Abdominal Exam GI & Abdominal Exam: Normal Bowel Sounds, Soft, Tenderness. absent: Distended, Firm, Guarding, Organomegaly, Rebound, Rigid Additional comments: epigastric and mid-abdomen tenderness - Rectal Exam Additional comments: brown soft stool - Extremities Exam Extremities exam: Positive for: full ROM. Negative for: pedal edema - Neurological Exam Neurological exam: Alert, Oriented x3 - Psychiatric Exam Psychiatric exam: Normal Affect, Normal Mood - Skin Skin Exam: Dry, Intact, Normal Color, Warm Results - Vital Signs Recent Vital Signs: Last Vital Signs Temp 97.8 F 11/28/16 07:47 Pulse 60 11/28/16 08:00 Resp 20 11/28/16 07:47 BP 107/68 11/28/16 07:47 Pulse Ox 98 11/28/16 07:47 - Labs Result Diagrams: 11/28/16 07:27 11/28/16 07:27 Labs: Laboratory Results - last 24 hr 11/28/16 11/28/16 11/28/16 07:27 07:27 07:27 WBC 4.7 L RBC 4.30 Hgb 11.7 Hct 36.3 MCV 84.4 MCH 27.2 MCHC 32.2 L RDW 14.2 Plt Count 243 MPV 9.0 Neut % (Auto) 59.3 Lymph % (Auto) 30.5 Graham % (Auto) 6.5 Eos % (Auto) 3.0 Baso % (Auto) 0.7 Neut # 2.8 Lymph # 1.4 Graham # 0.3 Eos # 0.1 Baso # 0.0 Sodium 136 Potassium 3.9 Chloride 106 Carbon Dioxide 19 L Anion Gap 15 BUN 14 Creatinine 0.7 Est GFR ( Amer) > 60 Est GFR (Non-Af Amer) > 60 Random Glucose 68 Calcium 7.7 L Magnesium 1.9 Total Bilirubin 0.5 AST 24 ALT 11 Alkaline Phosphatase 73 Total Protein 5.8 L Albumin 3.1 L Globulin 2.7 Albumin/Globulin Ratio 1.1 Free T4 1.02 TSH 3rd Generation 0.93 Assessment & Plan - Assessment and Plan (Free Text) Assessment: 46 year old female with history of Hypothyroidism and endorsed colitis eight years ago presenting with abdominal pain vomiting, and diarrhea. CT A/P showed left complex renal 2.7 x 3.3 x2.7cm cystic mass. Ultrasound showed steatosis and left renal lesion. Prior EGD endorsed to have Gastritis and colonoscopy endorsed to be normal. Plan: DDx: gastritis, H pylori, gastroenteritis >no overt signs of GI blood loss >H/H stable >pending Cdiff, stool culture, O&P, H. pylori stool agn >supportive care: antiemetics, pain control, PPI >advance diet as tolerated >Urology managing- left renal lesion >outpatient GI follow up in [facility] <Jaswant Burrows MD - Last Filed: 11/28/16 15:43> Meds - Medications Medications: Current Medications Sodium Chloride (Sodium Chloride 0.9%) 1,000 mls @ 100 mls/hr IV .Q10H [facility] Last Admin: 11/28/16 05:52 Dose: 100 mls/hr Levothyroxine Sodium (Synthroid) 25 mcg PO DAILY@0630 [facility] Last Admin: 11/28/16 05:52 Dose: 25 mcg Morphine Sulfate (Morphine) 2 mg IVP Q4H PRN PRN Reason: Pain, Mild (1-3) Last Admin: 11/28/16 12:41 Dose: 2 mg Ondansetron HCl (Zofran Inj) 4 mg IVP Q6 PRN PRN Reason: Nausea/Vomiting Pantoprazole Sodium (Protonix Ec Tab) 40 mg PO ACB JEFFREY Results - Vital Signs Recent Vital Signs: Last Vital Signs Temp 97.8 F 11/28/16 07:47 Pulse 60 11/28/16 08:00 Resp 20 11/28/16 07:47 BP 107/68 11/28/16 07:47 Pulse Ox 98 11/28/16 07:47 - Labs Result Diagrams: 11/28/16 07:27 11/28/16 07:27 Labs: Laboratory Results - last 24 hr 11/28/16 11/28/16 11/28/16 07:27 07:27 07:27 WBC 4.7 L RBC 4.30 Hgb 11.7 Hct 36.3 MCV 84.4 MCH 27.2 MCHC 32.2 L RDW 14.2 Plt Count 243 MPV 9.0 Neut % (Auto) 59.3 Lymph % (Auto) 30.5 Graham % (Auto) 6.5 Eos % (Auto) 3.0 Baso % (Auto) 0.7 Neut # 2.8 Lymph # 1.4 Graham # 0.3 Eos # 0.1 Baso # 0.0 Sodium 136 Potassium 3.9 Chloride 106 Carbon Dioxide 19 L Anion Gap 15 BUN 14 Creatinine 0.7 Est GFR ( Amer) > 60 Est GFR (Non-Af Amer) > 60 Random Glucose 68 Calcium 7.7 L Magnesium 1.9 Total Bilirubin 0.5 AST 24 ALT 11 Alkaline Phosphatase 73 Total Protein 5.8 L Albumin 3.1 L Globulin 2.7 Albumin/Globulin Ratio 1.1 Free T4 1.02 TSH 3rd Generation 0.93 Stool Occult Blood 11/28/16 14:15 WBC RBC Hgb Hct MCV MCH MCHC RDW Plt Count MPV Neut % (Auto) Lymph % (Auto) Graham % (Auto) Eos % (Auto) Baso % (Auto) Neut # Lymph # Graham # Eos # Baso # Sodium Potassium Chloride Carbon Dioxide Anion Gap BUN Creatinine Est GFR ( Amer) Est GFR (Non-Af Amer) Random Glucose Calcium Magnesium Total Bilirubin AST ALT Alkaline Phosphatase Total Protein Albumin Globulin Albumin/Globulin Ratio Free T4 TSH 3rd Generation Stool Occult Blood Negative Attending/Attestation - Attestation I have personally seen and examined this patient.: Yes I have fully participated in the care of the patient.: Yes I have reviewed all pertinent clinical information: Yes Notes (Text): 11/28/16 15:40 This is a 46 year old female with history of Hypothyroidism and endorsed colitis eight years ago presenting with abdominal pain vomiting, and diarrhea. CT A/P showed left complex renal 2.7 x 3.3 x2.7cm cystic mass. Ultrasound showed steatosis and left renal lesion. Now resolved nausea and vomiting and tolerating solid diet with formed stools. Pending stool infectious work up. Needs biopsy of left renal lesion. GI symptoms likely due to gastroenteritis. Follow up outpatient in [facility]. Thank you for letting us participate in the care of this patient
--- NOTE | 2016-11-28 14:52 | CP.PCM.DIS ---
<SrikanthLizbet - Last Filed: 11/29/16 20:19> Provider - Provider Date of Admission: 11/26/16 21:28 Attending physician: Blas Lai MD Primary care physician: Dr. Tyler Time Spent in preparation of Discharge (in minutes): 31 Diagnosis - Discharge Diagnosis (1) Abdominal pain Status: Acute (2) Hypothyroidism Status: Acute (3) Mass of left kidney Status: Acute Hospital Course - Lab Results Lab Results: Micro Results 11/28/16 Unknown Stool Ova and Parasite Concentrate Exam - Final Most Recent Lab Values WBC 4.2 K/uL (4.8-10.8) L 11/29/16 06:56 RBC 4.04 Mil/uL (3.80-5.20) 11/29/16 06:56 Hgb 10.9 g/dL (11.0-16.0) L 11/29/16 06:56 Hct 33.7 % (34.0-47.0) L 11/29/16 06:56 MCV 83.5 fL (81.0-99.0) 11/29/16 06:56 MCH 27.0 pg (27.0-31.0) 11/29/16 06:56 MCHC 32.3 g/dL (33.0-37.0) L 11/29/16 06:56 RDW 14.3 % (11.5-14.5) 11/29/16 06:56 Plt Count 240 K/uL (130-400) 11/29/16 06:56 MPV 8.8 fL (7.2-11.7) 11/29/16 06:56 Neut % (Auto) 35.6 % (50.0-75.0) L 11/29/16 06:56 Lymph % (Auto) 50.5 % (20.0-40.0) H 11/29/16 06:56 [place] % (Auto) 8.0 % (0.0-10.0) 11/29/16 06:56 Eos % (Auto) 5.0 % (0.0-4.0) H 11/29/16 06:56 Baso % (Auto) 0.9 % (0.0-2.0) 11/29/16 06:56 Neut # 1.5 K/uL (1.8-7.0) L 11/29/16 06:56 Lymph # 2.1 K/uL (1.0-4.3) 11/29/16 06:56 [place] # 0.3 K/uL (0.0-0.8) 11/29/16 06:56 Eos # 0.2 K/uL (0.0-0.7) 11/29/16 06:56 Baso # 0.0 K/uL (0.0-0.2) 11/29/16 06:56 PT 11.3 SECONDS (9.7-12.2) 11/27/16 07:44 INR 1.0 11/27/16 07:44 APTT 31 SECONDS (21-34) 11/27/16 07:44 Sodium 139 mmol/L (132-148) 11/29/16 06:56 Potassium 3.7 mmol/L (3.6-5.2) 11/29/16 06:56 Chloride 105 mmol/L (98-107) 11/29/16 06:56 Carbon Dioxide 28 mmol/L (22-30) 11/29/16 06:56 Anion Gap 9 (10-20) L 11/29/16 06:56 BUN 13 mg/dL (7-17) 11/29/16 06:56 Creatinine 0.8 MG/DL (0.7-1.2) 11/29/16 06:56 Est GFR ( Amer) > 60 11/29/16 06:56 Est GFR (Non-Af Amer) > 60 11/29/16 06:56 Random Glucose 87 mg/dL (65-105) 11/29/16 06:56 Calcium 7.8 mg/dl (8.6-10.4) L 11/29/16 06:56 Magnesium 1.9 mg/dL (1.6-2.3) 11/28/16 07:27 Total Bilirubin 0.4 mg/dL (0.2-1.3) 11/29/16 06:56 AST 20 U/L (14-36) 11/29/16 06:56 ALT 19 U/L (9-52) 11/29/16 06:56 Alkaline Phosphatase 75 U/L (38-126) 11/29/16 06:56 Total Protein 5.5 g/dL (6.3-8.3) L 11/29/16 06:56 Albumin 3.0 g/dL (3.5-5.0) L 11/29/16 06:56 Globulin 2.5 gm/dL (2.2-3.9) 11/29/16 06:56 Albumin/Globulin Ratio 1.2 (1.0-2.1) 11/29/16 06:56 Lipase 39 U/L (23-300) 11/26/16 16:50 Free T4 1.02 ng/dL (0.78-2.19) 11/28/16 07:27 TSH 3rd Generation 0.93 mIU/L (0.46-4.68) 11/28/16 07:27 Urine Color Straw (YELLOW) 11/28/16 21:27 Urine Clarity Clear (Clear) 11/28/16 21:27 Urine pH 5.0 (5.0-8.0) 11/28/16 21:27 Ur Specific [place] 1.010 (1.003-1.030) 11/28/16 21:27 Urine Protein Negative mg/dL (NEGATIVE) 11/28/16 21:27 Urine Glucose (UA) Normal mg/dL (Normal) 11/28/16 21:27 Urine Ketones Negative mg/dL (NEGATIVE) 11/28/16 21:27 Urine Blood Negative (NEGATIVE) 11/28/16 21:27 Urine Nitrate Negative (NEGATIVE) 11/28/16 21:27 Urine Bilirubin Negative (NEGATIVE) 11/28/16 21:27 Urine Urobilinogen Normal mg/dL (0.2-1.0) 11/28/16 21:27 Ur Leukocyte Esterase Neg [place]/uL (Negative) 11/28/16 21:27 Urine WBC (Auto) < 1 /hpf (0-5) 11/28/16 21:27 Urine RBC (Auto) 1 /hpf (0-3) 11/26/16 16:50 Ur Squamous Epith Cells 1 /hpf (0-5) 11/28/16 21:27 Urine HCG, Qual Negative (NEGATIVE) 11/26/16 16:50 Stool Occult Blood Negative (NEGATIVE) 11/28/16 14:15 Stool Leukocytes, Qual Negative (NEGATIVE) 11/27/16 Unknown C. difficile Ag & Toxin Negative (NEGATIVE) 11/27/16 Unknown - Hospital Course Hospital Course: On initial presentation CC: abdominal pain, nausea/vomiting" 46F with PMH of hypothyroidism presented to [facility] ED with complaint of abdominal pain and nausea/vomiting. Patient states that symptoms have been going on for about 3 weeks. She states that she has never experienced these symptoms before. She also reports a gradual onset. She stated that she has vomited about 4-5 times in last two days. She describes the vomit as dark black each time. She states that she has also had 7 episodes of diarrhea. She decided to come in today because pain was worse and n/v/d had not resolved. Patient rates abd pain as 10/10 in severity. She describes the pain as constant and sharp that begins in epigastric region which radiates to RLQ and R flank. Eating /drinking exacerbates her symptoms while nothing she notices alleviates them. Admits to fatigue and body aches. Denies recent illness, sick contacts, fver/ chills, cp, sob, constipation, incontinence, numbness/tingling. PMD: Dr. Tyler PMH: Hypothyroidism Med: Synthroid 25 mcg PO daily Allergy: NKDA PSH: bladder procedure for stones Hosp: colitis 8-10 years ago Fh: Unknown Social: lives with family, denies tobacco/ETOH/illicit drug use During hospital course: Abdominal pain Likely to be secondary to gastroenteritis Patient had multiple episodes of dark emesis. Fluids were given initially. Lipase, LFTs, INR were found to be normal Zofran 4 mg IVP Q6H PRN nausea Morphine 2 mg IVP Q4H PRN Protonix 40 mg IVP Q12H Sulcrafate [address] abd/pelvis w PO and IV contrast (11/26/16): complex cystic mass arising from midportion of the left kidney (mural nodularity. Mass: 2.7 X3.3X2.7 cm. thin internal septations are suggested left vein opacifies normally Abdominal US (11/27/16): echogenic liver; heterogenous hypoechoic left renal lesion favored to represent complex cyst with septation, cholecystectomy Mass of left kidney Renal mass was found incidentally on imaging. CT abd/pelvis w PO and IV contrast (11/26/16): complex cystic mass arising from midportion of the left kidney (mural nodularity. Mass: 2.7 X3.3X2.7 cm. thin internal septations are suggested left vein opacifies normally Abdominal US (11/27/16): echogenic liver; heterogenous hypoechoic left renal lesion favored to represent complex cyst with septation, cholecystect Heme/Onc, Dr. Palm was consulted. Urology, Dr. Marquez, was consulted. Per Urology, Renal US should be repeated in 6 months; and if there is no change, then yearly follow-up; if necessary CT tumor protocol with and without IV contrast should be done. Coffee ground emesis "Coffee ground emesis" as per patient H/H was stable throughout hospital course History of gastritis per patient. Denies prior NSAID/Alcohol Use GI, Dr. Varner was consulted. Negative stool occult blood Patient to continue on Protonix Hypothyroidism Synthroid 25 mcg PO daily TSH: 0.93 Free T4:1.02 Diarrhea Patient had diarrhea day prior to discharge. C diff, ova and parasites, stool leukocytes were found to be negative. Patient was discharged with Metronidazole and Simethicone. Please note this is a summary of the hospital course. For full details, please see patient chart. Discharge Instructions Patient medically stable for discharge to home by Dr. Fritz. Patient to take new medications Protonix 40 mg by mouth daily, twice per day, Flagyl 500 mg by mouth every 6 hours for 7 days, and Simethicone 125 mg by mouth three times a day as needed for gas. If patient continues to have diarrhea, patient to follow- up with primary care doctor, Dr. Tyler. Patient is to resume all other home medications as previously prescribed. Patient is to follow up with PMD, Urology ([facility]), GI ([facility]), and Heme/Onc ([facility]) within 1 week of discharge. Patient may resume physical activity as tolerated. Patient is to repeat Renal Ultrasound again in 6 months. Please return to ER if symptoms persist or condition worsens. All instructions stated above were discussed in detail with patient. She verbalized understanding and agreement. - Date & Time of H&P Date of H&P: 11/26/16 Time of H&P: 21:34 Discharge Exam - Eye Exam Eye Exam: EOMI, Normal appearance, PERRL Pupil Exam: NORMAL ACCOMODATION, PERRL - ENT Exam ENT Exam: Mucous Membranes Moist - Neck Exam Neck exam: Full Rom - Respiratory Exam Respiratory Exam: Clear to PA & Lateral, NORMAL BREATHING PATTERN, UNREMARKABLE - Cardiovascular Exam Cardiovascular Exam: +S1, +S2. absent: Tachycardia - GI/Abdominal Exam GI & Abdominal Exam: Normal Bowel Sounds, Tenderness, Unremarkable. absent: Firm - Extremities Exam Extremities exam: full ROM, pedal pulses present - Neurological Exam Neurological exam: Alert, Oriented x3 - Psychiatric Exam Psychiatric exam: Normal Affect, Normal Mood - Skin Skin Exam: Dry, Normal Color, Warm Discharge Plan - Discharge Medications Prescriptions: Metronidazole [Flagyl] 500 mg PO Q6H #28 tablet Pantoprazole [Protonix EC Tab] 40 mg PO DAILY #30 ect Simethicone 125 mg PO TID #90 capsule Sucralfate [Carafate Tab] 1 gm PO BID #60 tab - Follow Up Plan Condition: STABLE Disposition: HOME/ ROUTINE Instructions: Sucralfate (By mouth), Simethicone (By mouth), Metronidazole (By mouth), Pantoprazole (By mouth), Acute Abdominal Pain (DC), Kidney Cyst (GEN) Additional Instructions: Patient medically stable for discharge to home by Dr. Fritz. Patient to take new medications Protonix 40 mg by mouth daily, Sulcrafate 1 tab by mouth twice per day. Patient is to resume all other home medications as previously prescribed. Patient is to follow up with PMD, Urology ([facility]), GI ([facility]), and Heme/Onc ([facility]) within 1 week of discharge. Patient may resume physical activity as tolerated. Patient is to repeat Renal Ultrasound again in 6 months. Please return to ER if symptoms persist or condition worsens. All instructions stated above were discussed in detail with patient. She verbalized understanding and agreement. Referrals: Kimani Marquez MD [Staff Provider] - Kojo Varner MD [Staff Provider] - [facility] ANGELO,MD Rajinder [Staff Provider] - <DrejaidenVan roth - Last Filed: 11/30/16 13:45> Provider - Provider Date of Admission: 11/26/16 21:28 Attending physician: Blas Lai MD Consults: GI: [facility] Urology: [facility] Heme/Onc: [facility] Hospital Course - Lab Results Lab Results: Most Recent Lab Values WBC 4.7 K/uL (4.8-10.8) L 11/28/16 07:27 RBC 4.30 Mil/uL (3.80-5.20) 11/28/16 07:27 Hgb 11.7 g/dL (11.0-16.0) 11/28/16 07: Hct 36.3 % (34.0-47.0) 11/28/16 07: MCV 84.4 fL (81.0-99.0) 11/28/16 07: MCH 27.2 pg (27.0-31.0) 11/28/16 07: MCHC 32.2 g/dL (33.0-37.0) L 11/28/16 07: RDW 14.2 % (11.5-14.5) 11/28/16: Plt Count 243 K/uL (130-400) 11/28/16 07: MPV 9.0 fL (7.2-11.7) 11/28/16 07: Neut % (Auto) 59.3 % (50.0-75.0) 11/28/16 07: Lymph % (Auto) 30.5 % (20.0-40.0) 11/28/16 07: [place] % (Auto) 6.5 % (0.0-10.0) 11/28/16 07: Eos % (Auto) 3.0 % (0.0-4.0) 11/28/16 07: Baso % (Auto) 0.7 % (0.0-2.0) 11/28/16 07: Neut # 2.8 K/uL (1.8-7.0) 11/28/16 07: Lymph # 1.4 K/uL (1.0-4.3) 11/28/16 07:27 [place] # 0.3 K/uL (0.0-0.8) 11/28/16 07: Eos # 0.1 K/uL (0.0-0.7) 11/28/16 07: Baso # 0.0 K/uL (0.0-0.2) 11/28/16 07:27 PT 11.3 SECONDS (9.7-12.2) 11/27/16 07:44 INR 1.0 11/27/16 07:44 APTT 31 SECONDS (21-34) 11/27/16 07:44 Sodium 136 mmol/L (132-148) 11/28/16 07:27 Potassium 3.9 mmol/L (3.6-5.2) 11/28/16 07:27 Chloride 106 mmol/L (98-107) 11/28/16 07:27 Carbon Dioxide 19 mmol/L (22-30) L 11/28/16 07:27 Anion Gap 15 (10-20) 11/28/16 07:27 BUN 14 mg/dL (7-17) 11/28/16 07:27 Creatinine 0.7 MG/DL (0.7-1.2) 11/28/16 07:27 Est GFR ( Amer) > 60 11/28/16 07:27 Est GFR (Non-Af Amer) > 60 11/28/16 07:27 Random Glucose 68 mg/dL (65-105) 11/28/16 07:27 Calcium 7.7 mg/dl (8.6-10.4) L 11/28/16 07:27 Magnesium 1.9 mg/dL (1.6-2.3) 11/28/16 07:27 Total Bilirubin 0.5 mg/dL (0.2-1.3) 11/28/16 07:27 AST 24 U/L (14-36) 11/28/16 07:27 ALT 11 U/L (9-52) 11/28/16 07:27 Alkaline Phosphatase 73 U/L (38-126) 11/28/16 07:27 Total Protein 5.8 g/dL (6.3-8.3) L 11/28/16 07:27 Albumin 3.1 g/dL (3.5-5.0) L 11/28/16 07:27 Globulin 2.7 gm/dL (2.2-3.9) 11/28/16 07:27 Albumin/Globulin Ratio 1.1 (1.0-2.1) 11/28/16 07:27 Lipase 39 U/L (23-300) 11/26/16 16:50 Free T4 1.02 ng/dL (0.78-2.19) 11/28/16 07:27 TSH 3rd Generation 0.93 mIU/L (0.46-4.68) 11/28/16 07:27 Urine Color Yellow (YELLOW) 11/26/16 16:50 Urine Clarity Hazy (Clear) 11/26/16 16:50 Urine pH 5.0 (5.0-8.0) 11/26/16 16:50 Ur Specific [place] 1.026 (1.003-1.030) 11/26/16 16:50 Urine Protein Negative mg/dL (NEGATIVE) 11/26/16 16:50 Urine Glucose (UA) Normal mg/dL (Normal) 11/26/16 16:50 Urine Ketones Negative mg/dL (NEGATIVE) 11/26/16 16:50 Urine Blood Negative (NEGATIVE) 11/26/16 16:50 Urine Nitrate Negative (NEGATIVE) 11/26/16 16:50 Urine Bilirubin Negative (NEGATIVE) 11/26/16 16:50 Urine Urobilinogen Normal mg/dL (0.2-1.0) 11/26/16 16:50 Ur Leukocyte Esterase Neg [place]/uL (Negative) 11/26/16 16:50 Urine WBC (Auto) 1 /hpf (0-5) 11/26/16 16:50 Urine RBC (Auto) 1 /hpf (0-3) 11/26/16 16:50 Ur Squamous Epith Cells 19 /hpf (0-5) H 11/26/16 16:50 Urine HCG, Qual Negative (NEGATIVE) 11/26/16 16:50 Discharge Exam - Head Exam Head Exam: ATRAUMATIC, NORMOCEPHALIC <Pau Demarcot - Last Filed: 12/21/16 15:23> Provider - Provider Date of Admission: 11/26/16 21:28 Attending physician: Blas Lai MD Hospital Course - Lab Results Lab Results: Micro Results 11/28/16 08:00 Urine Urine Culture - Final <10,000 CFU/ML. MULTIPLE SPECIES. PROBABLE CONTAMINATION. 11/28/16 Unknown Stool Stool Culture - Final NO SALMONELLA, SHIGELLA OR CAMPYLOBACTER ISOLATED. 11/28/16 Unknown Stool Ova and Parasite Concentrate Exam - Final Most Recent Lab Values WBC 4.2 K/uL (4.8-10.8) L 11/29/16 06:56 RBC 4.04 Mil/uL (3.80-5.20) 11/29/16 06:56 Hgb 10.9 g/dL (11.0-16.0) L 11/29/16 06:56 Hct 33.7 % (34.0-47.0) L 11/29/16 06:56 MCV 83.5 fL (81.0-99.0) 11/29/16 06:56 MCH 27.0 pg (27.0-31.0) 11/29/16 06:56 MCHC 32.3 g/dL (33.0-37.0) L 11/29/16 06:56 RDW 14.3 % (11.5-14.5) 11/29/16 06:56 Plt Count 240 K/uL (130-400) 11/29/16 06:56 MPV 8.8 fL (7.2-11.7) 11/29/16 06:56 Neut % (Auto) 35.6 % (50.0-75.0) L 11/29/16 06:56 Lymph % (Auto) 50.5 % (20.0-40.0) H 11/29/16 06:56 [place] % (Auto) 8.0 % (0.0-10.0) 11/29/16 06:56 Eos % (Auto) 5.0 % (0.0-4.0) H 11/29/16 06:56 Baso % (Auto) 0.9 % (0.0-2.0) 11/29/16 06:56 Neut # 1.5 K/uL (1.8-7.0) L 11/29/16 06:56 Lymph # 2.1 K/uL (1.0-4.3) 11/29/16 06:56 [place] # 0.3 K/uL (0.0-0.8) 11/29/16 06:56 Eos # 0.2 K/uL (0.0-0.7) 11/29/16 06:56 Baso # 0.0 K/uL (0.0-0.2) 11/29/16 06:56 PT 11.3 SECONDS (9.7-12.2) 11/27/16 07:44 INR 1.0 11/27/16 07:44 APTT 31 SECONDS (21-34) 11/27/16 07:44 Sodium 139 mmol/L (132-148) 11/29/16 06:56 Potassium 3.7 mmol/L (3.6-5.2) 11/29/16 06:56 Chloride 105 mmol/L (98-107) 11/29/16 06:56 Carbon Dioxide 28 mmol/L (22-30) 11/29/16 06:56 Anion Gap 9 (10-20) L 11/29/16 06:56 BUN 13 mg/dL (7-17) 11/29/16 06:56 Creatinine 0.8 MG/DL (0.7-1.2) 11/29/16 06:56 Est GFR ( Amer) > 60 11/29/16 06:56 Est GFR (Non-Af Amer) > 60 11/29/16 06:56 Random Glucose 87 mg/dL (65-105) 11/29/16 06:56 Calcium 7.8 mg/dl (8.6-10.4) L 11/29/16 06:56 Magnesium 1.9 mg/dL (1.6-2.3) 11/28/16 07:27 Total Bilirubin 0.4 mg/dL (0.2-1.3) 11/29/16 06:56 AST 20 U/L (14-36) 11/29/16 06:56 ALT 19 U/L (9-52) 11/29/16 06:56 Alkaline Phosphatase 75 U/L (38-126) 11/29/16 06:56 Total Protein 5.5 g/dL (6.3-8.3) L 11/29/16 06:56 Albumin 3.0 g/dL (3.5-5.0) L 11/29/16 06:56 Globulin 2.5 gm/dL (2.2-3.9) 11/29/16 06:56 Albumin/Globulin Ratio 1.2 (1.0-2.1) 11/29/16 06:56 Lipase 39 U/L (23-300) 11/26/16 16:50 Free T4 1.02 ng/dL (0.78-2.19) 11/28/16 07:27 TSH 3rd Generation 0.93 mIU/L (0.46-4.68) 11/28/16 07:27 Urine Color Straw (YELLOW) 11/28/16 21:27 Urine Clarity Clear (Clear) 11/28/16 21:27 Urine pH 5.0 (5.0-8.0) 11/28/16 21:27 Ur Specific [place] 1.010 (1.003-1.030) 11/28/16 21: Urine Protein Negative mg/dL (NEGATIVE) 11/28/16 21:27 Urine Glucose (UA) Normal mg/dL (Normal) 11/28/16 21: Urine Ketones Negative mg/dL (NEGATIVE) 11/28/16 21: Urine Blood Negative (NEGATIVE) 11/28/16 21: Urine Nitrate Negative (NEGATIVE) 11/28/16 21: Urine Bilirubin Negative (NEGATIVE) 11/28/16 21: Urine Urobilinogen Normal mg/dL (0.2-1.0) 11/28/16 21: Ur Leukocyte Esterase Neg [place]/uL (Negative) 11/28/16 21:27 Urine WBC (Auto) < 1 /hpf (0-5) 11/28/16 21: Urine RBC (Auto) 1 /hpf (0-3) 11/26/16 16:50 Ur Squamous Epith Cells 1 /hpf (0-5) 11/28/16 21:27 Urine HCG, Qual Negative (NEGATIVE) 11/26/16 16:50 Stool Occult Blood Negative (NEGATIVE) 11/28/16 14:15 Stool Leukocytes, Qual Negative (NEGATIVE) 11/27/16 Unknown Stool H. pylori Ag Not detected (Not Detected) 11/28/16 08:14 C. difficile Ag & Toxin Negative (NEGATIVE) 11/27/16 Unknown H. pylori Source Stool 11/28/16 08:14 Attending/Attestation - Attestation I have personally seen and examined this patient.: Yes I have fully participated in the care of the patient.: Yes I have reviewed all pertinent clinical information, including history, physical exam and plan: Yes Notes (Text): Renal mass Gastroenteritis Follow-up for renal mass with urology.
--- NOTE | 2016-11-28 17:41 | CP.PCM.PN ---
<DrejaidenVan roth - Last Filed: 11/28/16 17:39> Subjective - Date & Time of Evaluation Date of Evaluation: 11/28/16 Time of Evaluation: 17:39 - Subjective Subjective: PGY-1 Medicine Progress Note for Dr. Fritz Patient seen and examined at bedside this AM. She admits to some nausea, but no vomiting. Abdominal pain is well controlled. patient tolerated diet today. Patient was scheduled to be discharged but started complaining of diarrhea. No other acute complaints at this time. Objective - Vital Signs/Intake and Output Vital Signs (last 24 hours): Temp Pulse Resp BP Pulse Ox 98.0 F 58 L 20 92/53 L 98 11/28/16 15:00 11/28/16 15:00 11/28/16 15:00 11/28/16 15:00 11/28/16 15:00 Intake and Output: 11/28/16 11/28/16 06:59 18:59 Intake Total 2100 Balance 2100 - Medications Medications: Current Medications Sodium Chloride (Sodium Chloride 0.9%) 1,000 mls @ 100 mls/hr IV .Q10H [facility] Last Admin: 11/28/16 05:52 Dose: 100 mls/hr Levothyroxine Sodium (Synthroid) 25 mcg PO DAILY@0630 [facility] Last Admin: 11/28/16 05:52 Dose: 25 mcg Morphine Sulfate (Morphine) 2 mg IVP Q4H PRN PRN Reason: Pain, Mild (1-3) Last Admin: 11/28/16 12:41 Dose: 2 mg Ondansetron HCl (Zofran Inj) 4 mg IVP Q6 PRN PRN Reason: Nausea/Vomiting Pantoprazole Sodium (Protonix Ec Tab) 40 mg PO ACB [facility] - Labs Labs: 11/28/16 07:27 11/28/16 07:27 PT 11.3 SECONDS (9.7-12.2) 11/27/16 07:44 INR 1.0 11/27/16 07:44 APTT 31 SECONDS (21-34) 11/27/16 07:44 - Constitutional Appears: No Acute Distress - Head Exam Head Exam: ATRAUMATIC, NORMOCEPHALIC - Eye Exam Eye Exam: EOMI, Normal appearance - ENT Exam ENT Exam: Mucous Membranes Moist - Neck Exam Neck Exam: Normal Inspection - Respiratory Exam Respiratory Exam: Clear to Ausculation Bilateral, NORMAL BREATHING PATTERN - Cardiovascular Exam Cardiovascular Exam: REGULAR RHYTHM, +S1, +S2 - GI/Abdominal Exam GI & Abdominal Exam: Soft, Tenderness (mild to deep palpation), Normal Bowel Sounds - Extremities Exam Extremities Exam: Normal Capillary Refill - Back Exam Back Exam: absent: CVA tenderness (L), CVA tenderness (R) - Neurological Exam Neurological Exam: Alert, Awake, CN II-XII Intact, Oriented x3 - Psychiatric Exam Psychiatric exam: Normal Affect, Normal Mood - Skin Skin Exam: Dry, Intact, Normal Color, Warm Assessment and Plan - Assessment and Plan (Free Text) Plan: (1) Coffee ground emesis Assessment & Plan: Coffee ground emesis as per patient GI consult, Dr. Varner, help appreciated. Zofran 4 mg IVP Q6H PRN Protonix 40 mg IVP Q12H Sulcrafate 1 gm PO BID NS 100 cc/hr Abd US (2) Abdominal pain Assessment & Plan: CT abd/pelvis: Complex cystic mass within the left kidney suspicious for a renal cell carcinoma (see full report). Abd US Lipase 39 and WNL. No leukocytosis. Zofran 4 mg IVP Q6H PRN Morphine 2 mg IVP Q4H PRN Protonix 40 mg IVP Q12H Sulcrafate 1 gm PO BID NS 100 cc/hr (3) Mass of left kidney Assessment & Plan: CT abd/pelvis: Complex cystic mass within the left kidney suspicious for a renal cell carcinoma (see full report) Heme/Onc consult, Dr. Palm, help appreciated Urology consult, Dr. Marquez, help appreciated UA: only shows sqaumos epith cells 19 (4) Hypothyroidism Assessment & Plan: Synthroid 25 mcg PO daily (5) Prophylactic measure Assessment & Plan: Anticoagulation contraindicated due to coffee ground emesis SCDs protonix 40 mg IVP Q12H stool occult blood <Sobeida Fritz V - Last Filed: 11/29/16 00:15> Objective - Vital Signs/Intake and Output Vital Signs (last 24 hours): Temp Pulse Resp BP Pulse Ox 98 F 58 L 20 92/53 L 98 11/28/16 18:26 11/28/16 15:00 11/28/16 15:00 11/28/16 15:00 11/28/16 15:00 Intake and Output: 05/01/17 05/02/17 18:59 06:59 Intake Total 2100 Balance 2100 - Medications Medications: Current Medications Acetaminophen (Tylenol 325mg Tab) 650 mg PO Q6 PRN PRN Reason: Headache Last Admin: 11/28/16 18:26 Dose: 650 mg Sodium Chloride (Sodium Chloride 0.9%) 1,000 mls @ 100 mls/hr IV .Q10H [facility] Last Admin: 11/28/16 17:51 Dose: 100 mls/hr Levothyroxine Sodium (Synthroid) 25 mcg PO DAILY@0630 [facility] Last Admin: 11/28/16 05:52 Dose: 25 mcg Loperamide HCl (Imodium) 2 mg PO QID PRN PRN Reason: Diarrhea Morphine Sulfate (Morphine) 2 mg IVP Q4H PRN PRN Reason: Pain, Mild (1-3) Last Admin: 11/28/16 12:41 Dose: 2 mg Ondansetron HCl (Zofran Inj) 4 mg IVP Q6 PRN PRN Reason: Nausea/Vomiting Pantoprazole Sodium (Protonix Ec Tab) 40 mg PO ACB [facility] Sucralfate (Carafate Tab) 1 gm PO BID [facility] Last Admin: 11/28/16 18:28 Dose: 1 gm - Labs Labs: 11/28/16 07:27 11/28/16 07:27 PT 11.3 SECONDS (9.7-12.2) 11/27/16 07:44 INR 1.0 11/27/16 07:44 APTT 31 SECONDS (21-34) 11/27/16 07:44 Attending/Attestation - Attestation I have personally seen and examined this patient.: Yes I have fully participated in the care of the patient.: Yes I have reviewed all pertinent clinical information, including history, physical exam and plan: Yes Notes (Text): This is late computer entry for 11/28/16. Patient seen, examined and case discussed with day-time resident. Patient reports abdominal pain has resolved, stools are formed, and tolerating diet at bedside. Explained to the patient she has complex renal cyst over left side of body which should not have caused the original pain she came in with. She will need follow-up renal US and outpatient follow-up with urology. Per GI, patient is stable for discharge. Symptoms likely secondary gastroenteritis. Patient pending follow-up stool studies during the day; they are negative at the time of this note. Patient is medically stable for discharge today, but does not want to go home because she feels she is having diarrhea though she has told me this me her diarrhea has resolved. Possible discharge tomorrow; will need to follow-up with GI/Urology and follow- up Renal US to monitor complex renal cyst Assessment/Plan (1) Abdominal pain Assessment & Plan: * Likely secondary to gastroenteritis * CT abd/pelvis w PO and IV contrast (11/26/16): complex cystic mass arising from midportion of the left kidney (mural nodularity. Mass: 2.7 X3.3X2.7 cm. thin internal septations are suggested left vein opacifies normally * Abdominal US (11/27/16): echogenic liver; heterogenous hypoechoic left renal lesion favored to represent complex cyst with septation, cholecystectomy * Lipase is normal, LFTs normal, INR normal * Zofran 4 mg IVP Q6H PRN nausea * Morphine 2 mg IVP Q4H PRN * Protonix 40 mg IVP Q12H * Sulcrafate 1 gm PO BID * d/c NS 100 cc/hr * Reported diarrhea: ordered for stool ova and parasite, and cdif; which are negative * Negative: stool occult blood Status: Acute (2) Mass of left kidney Assessment & Plan: * CT abd/pelvis w PO and IV contrast (11/26/16): complex cystic mass arising from midportion of the left kidney (mural nodularity. Mass: 2.7 X3.3X2.7 cm. thin internal septations are suggested left vein opacifies normally * Abdominal US (11/27/16): echogenic liver; heterogenous hypoechoic left renal lesion favored to represent complex cyst with septation, cholecystect * f/u Heme/Onc consult, Dr. Palm, help appreciated * Urology consult, Dr. Marquez, help appreciated-->Renal US should be in 6 months; and if there is no change, then yearly follow-up; if necessary CT tumor protocol without and with IV contrast * UA: only shows squamous epith cells 19 (contaminated); f/u urine culture Status: Acute (3) Coffee ground emesis Assessment & Plan: * "Coffee ground emesis" as per patient * H/H is stable * History of gastritis per patient. Denies prior NSAID/Alcohol Use * GI consult on call0-Dr. Varner- help appreciated. * Zofran 4 mg IVP Q6H PRN nausea * Protonix 40 mg IVP Q12H * Sulcrafate 1 gm PO BID * NS 100 cc/hr * Negative stool occult blood Status: Acute (4) Hypothyroidism Assessment & Plan: * Synthroid 25 mcg PO daily * TSH: 0.93 Free T4:1.02 Status: Acute (5) Prophylactic measure Assessment & Plan: * start heparin 5000units subq12 hours * SCDs b/l * Protonix 40 mg IVP Q12H * negative stool occult blood * tolerating diet Status: Acute Disposition: patient medically stable for discharge since 11/28/16. Patient to follow-up outpatient with GI and urology and will need serial renal US to monitor complex renal cyst.
[2016-11-28 19:36] LABS: C DIFF TOXIN A B NEGATIVE (NEGATIVE)
[2016-11-28 20:50] LABS: FECAL LEUKOCYTES NEGATIVE (NEGATIVE)
[2016-11-28 21:35] LABS: URINE BILIRUBIN NEGATIVE (NEGATIVE); URINE BLOOD NEGATIVE (NEGATIVE); URINE COLOR Straw (YELLOW); URINE GLUCOSE (UA) NORMAL (Normal); URINE KETONE NEGATIVE (NEGATIVE); URINE LEUKOCYTE ESTERASE NEG Leu/uL (Negative); URINE PROTEIN NEGATIVE (NEGATIVE); URINE UROBILINOGEN NORMAL mg/dL (0.2-1.0); WBC URINE < 1 /hpf (0-5)
[2016-11-29] MEDS: Sodium Chloride 0.9% 1,000 ML IV SCH ×3 (01:00→11:52)
[2016-11-29] MEDS: Levothyroxine 25 MCG TAB PO SCH (05:38)
[2016-11-29 07:03] LABS: BASO % 0.9 % (0.0-2.0); EOS # 0.2 K/uL (0.0-0.7); HEMATOCRIT 33.7 % (34.0-47.0); LYMPH # 2.1 K/uL (1.0-4.3); LYMPH % 50.5 % (20.0-40.0); MEAN CELL VOLUME 83.5 fL (81.0-99.0); MEAN CORPUSCULAR HGB CONC 32.3 g/dL (33.0-37.0); MEAN PLATELET VOLUME 8.8 fL (7.2-11.7); MONO # 0.3 K/uL (0.0-0.8); NRBC % 0.2 % (0.0-2.0); RED CELL DISTRIBUTION WIDTH 14.3 % (11.5-14.5); WHITE BLOOD COUNT 4.2 K/uL (4.8-10.8)
[2016-11-29 07:26] LABS: CHLORIDE 105 mmol/L (98-107)
[2016-11-29 07:27] LABS: POTASSIUM 3.7 mmol/L (3.6-5.2); SODIUM 139 mmol/L (132-148)
[2016-11-29 07:29] LABS: ALB/GLOB RATIO 1.2 (1.0-2.1); AST/SGOT 20 U/L (14-36); BILIRUBIN,TOTAL 0.4 mg/dL (0.2-1.3); CARBON DIOXIDE 28 mmol/L (22-30); GFR AFRICAN-AMERICAN > 60; TOTAL PROTEIN 5.5 g/dL (6.3-8.3)
[2016-11-29 07:30] LABS: ALKALINE PHOSPHATASE 75 U/L (38-126); ALT/SGPT 19 U/L (9-52); BLOOD UREA NITROGEN 13 mg/dL (7-17); CALCIUM 7.8 mg/dl (8.6-10.4); GLUCOSE,RANDOM 87 mg/dL (65-105)
[2016-11-29] MEDS ORDERED: Pantoprazole 40 mg EC Tab PO SCH (07:30)
[2016-11-29 08:29] VITALS: BP 104/60; PULSE 62; TEMP 97.8
[2016-11-30] MEDS ORDERED: Pneumococcal 23-Valent Vaccine IM ONE (10:00)
== END 2016-11-29 14:15 | disposition home or self-care (01) | DRG 814 ==
LOC: C.ER 16:24 → C.9E 21:28 → C.3T 22:51
PROVIDERS: ADMIT Family Medicine; ATTEND Family Medicine
DX: R10.13 Epigastric pain (principal); N28.89 Other specified disorders of kidney and ureter; E03.9 Hypothyroidism, unspecified; Z90.49 Acquired absence of other specified parts of digestive tract; Z80.8 Family history of malignant neoplasm of other organs or systems; R11.2 Nausea with vomiting, unspecified

== ENCOUNTER 2017-03-08 00:36 | Emergency (ER) | payer MEDICAID ==
[2017-03-08 00:44] VITALS: RESP 16
--- NOTE | 2017-03-08 00:55 | C.PDOC ---
History Of Present Illness Patient presents to the ER with a complaint of RLQ pain that began at approximately 00:30; she states she has taken nothing for the pain. Patient reports she was recently diagnosed with a large renal cyst and was suppose to follow up with urology and GI; however, came in due to increase in pain. Denies fever, chills, nausea, or vomiting. Time Seen by Provider: 03/08/17 00:54 Chief Complaint (Nursing): Abdominal Pain History Per: Patient History/Exam Limitations: no limitations Onset/Duration Of Symptoms: Hrs Current Symptoms Are (Timing): Still Present Severity: Moderate Pain Scale Rating Of: 4 Location Of Pain/Discomfort: RLQ Radiation Of Pain To:: None Quality Of Discomfort: Unable To Describe Associated Symptoms: denies: Fever, Chills, Nausea, Vomiting Exacerbating Factors: None Alleviating Factors: None Recent travel outside of the [place]: No Abnormal Vaginal Bleeding: No Past Medical History Reviewed: Historical Data, Nursing Documentation, Vital Signs Vital Signs: Last Vital Signs Temp 97.9 F 03/08/17 00:42 Pulse 52 L 03/08/17 00:42 Resp 16 03/08/17 00:42 BP 120/78 03/08/17 00:42 Pulse Ox 100 03/08/17 02:06 - Medical History PMH: Gastritis, Hypothyroidism Surgical History: Cholecystectomy Family History: States: No Known Family Hx - Social History Hx Tobacco Use: No Hx Alcohol Use: No Hx Substance Use: No - Immunization History Hx Tetanus Toxoid Vaccination: Yes Hx Influenza Vaccination: Yes Hx Pneumococcal Vaccination: Yes Review Of Systems Constitutional: Negative for: Fever, Chills Gastrointestinal: Positive for: Abdominal Pain. Negative for: Nausea, Vomiting Physical Exam - Physical Exam Appears: Non-toxic Skin: Warm, Dry Oral Mucosa: Moist Chest: Symmetrical, No Tenderness Cardiovascular: Rhythm Regular, No Murmur Respiratory: No Rales, No Rhonchi, No Wheezing Gastrointestinal/Abdominal: Soft, Tenderness (RLQ) Neurological/Psych: Oriented x3 ED Course And Treatment - Laboratory Results Result Diagrams: 03/08/17 01:31 03/08/17 01:31 O2 Sat by Pulse Oximetry: 100 (Room air) Pulse Ox Interpretation: Normal Progress Note: Zofran, protonix, and IV fluids administered. Reevaluation Time: 04:32 Reassessment Condition: Improved Disposition Counseled Patient/Family Regarding: Studies Performed, Diagnosis, Need For Followup - Disposition Referrals: Malvin Tyler MD [Staff Provider] - Disposition: HOME/ ROUTINE Disposition Time: 00:55 Condition: FAIR Prescriptions: Ibuprofen [Motrin] 600 mg PO TID PRN #15 tab PRN Reason: Pain, Moderate (4-7) Instructions: Abdominal Pain (ED) Forms: [employer] (Belarusian) Print Language: DIVEHI - Clinical Impression Clinical Impression: Abdominal pain - Scribe Statement The provider has reviewed the documentation as recorded by the Scribrd Chanel All medical record entries made by the Scribe were at my direction and personally dictated by me. I have reviewed the chart and agree that the record accurately reflects my personal performance of the history, physical exam, medical decision making, and the department course for this patient. I have also personally directed, reviewed, and agree with the discharge instructions and disposition.
[2017-03-08] MEDS ORDERED: Sodium Chloride 0.9% 1,000 ML IV ONE (00:57)
[2017-03-08 01:41] LABS: BASO # 0.1 K/uL (0.0-0.2); BASO % 1.1 % (0.0-2.0); EOS # 0.4 K/uL (0.0-0.7); EOS % 6.1 % (0.0-4.0); HEMATOCRIT 34.7 % (34.0-47.0); LYMPH # 2.5 K/uL (1.0-4.3); LYMPH % 34.9 % (20.0-40.0); MEAN CELL VOLUME 83.9 fL (81.0-99.0); MEAN CORPUSCULAR HEMOGLOBIN 27.9 pg (27.0-31.0); MEAN CORPUSCULAR HGB CONC 33.3 g/dL (33.0-37.0); MONO # 0.5 K/uL (0.0-0.8); MONO % 6.9 % (0.0-10.0); NRBC % 0.1 % (0.0-2.0); RED CELL DISTRIBUTION WIDTH 14.3 % (11.5-14.5); WHITE BLOOD COUNT 7.1 K/uL (4.8-10.8)
[2017-03-08 01:50] LABS: CHLORIDE 101 mmol/L (98-107); POTASSIUM 3.8 mmol/L (3.6-5.2); SODIUM 136 mmol/L (132-148)
[2017-03-08 01:50] LABS: RBC URINE 334 /hpf (0-3); URINE BACTERIA RARE (<OCC); URINE BILIRUBIN NEGATIVE (NEGATIVE); URINE BLOOD 3+ (NEGATIVE); URINE COLOR Yellow (YELLOW); URINE GLUCOSE (UA) NORMAL (Normal); URINE KETONE NEGATIVE (NEGATIVE); URINE LEUKOCYTE ESTERASE NEG Leu/uL (Negative); URINE PROTEIN NEGATIVE (NEGATIVE); URINE UROBILINOGEN NORMAL mg/dL (0.2-1.0); WBC URINE 2 /hpf (0-5)
[2017-03-08 01:51] LABS: ALB/GLOB RATIO 1.2 (1.0-2.1); ALKALINE PHOSPHATASE 105 U/L (38-126); AST/SGOT 19 U/L (14-36); BILIRUBIN,TOTAL 0.4 mg/dL (0.2-1.3); BLOOD UREA NITROGEN 18 mg/dL (7-17); CARBON DIOXIDE 26 mmol/L (22-30); GFR AFRICAN-AMERICAN > 60; TOTAL PROTEIN 6.7 g/dL (6.3-8.3)
[2017-03-08 01:52] LABS: ALT/SGPT 22 U/L (9-52); CALCIUM 8.6 mg/dl (8.6-10.4); GLUCOSE,RANDOM 111 mg/dL (65-105)
[2017-03-08] MEDS ORDERED: Sodium Chloride 0.9% 1,000 ML ONE (02:04)
--- NOTE | 2017-03-08 04:10 | CT ---
EXAM: CT Abdomen and Pelvis Without Intravenous Contrast CLINICAL HISTORY: 46 years old, female; Pain; Abdominal pain; Patient HX: 11-26-16; Additional info: R flank pain, HX of large cyst TECHNIQUE: Axial computed tomography images of the abdomen and pelvis without intravenous contrast. This CT exam was performed using one or more of the following dose reduction techniques: automated exposure control, adjustment of the mA and/or kV according to patient size, and/or use of iterative reconstruction technique. Coronal and sagittal reformatted images were created and reviewed. COMPARISON: No relevant prior studies available. Reference is made to a report from a prior CT examination performed 11/26/2016, as well as an ultrasound performed 11/27/2016. No imaging was available for comparison. FINDINGS: Lower thorax: The bilateral lung bases are clear. ABDOMEN: Liver: No acute findings Gallbladder and bile ducts: The chest is gallbladder is surgically absent. No intra-extrahepatic biliary ductal dilation. Pancreas: Limited evaluation secondary to the lack of intravenous contrast. Spleen: No acute findings. Adrenals: No acute findings. Kidneys and ureters: No obstructing stones. No hydronephrosis. Heterogeneity and nodularity are identified within the interpolar region of the left kidney. The prior imaging describes this as a complex cyst with septations. The the PELVIS: Bladder: No acute findings. Reproductive: No acute findings. Appendix: The appendix is of normal caliber (series 3, image 133). ABDOMEN and PELVIS: Stomach and bowel: No acute findings. Peritoneum: No acute findings. Lymph nodes: Limited evaluation without intravenous contrast. Vasculature: No aortic aneurysm. Bones: No acute fracture. IMPRESSION: Indeterminate focus within the interpolar region of the left kidney, as detailed above.
[2017-03-08 04:53] VITALS: BP 94/58; PULSE 64; TEMP 98; O2SAT 99
== END 2017-03-08 05:10 | disposition home or self-care (01) ==
LOC: C.ER 00:36
DX: R10.31 Right lower quadrant pain (principal)
CPT/HCPCS: 74176; 80053; 81001; 83690; 84703; 85025; 85610; 85730; 96361; 96374; 96375; 99284; C9113; J2405; J7040